=== PATIENT | female | born 1995 | race Caucasian/White ===

== ENCOUNTER 2019-10-11 13:03 | Emergency (ER) | payer OTHER ==
[~2019-10-11] VITALS: Ht 152.4 cm; Wt 54.4 kg
[~2019-10-11 13:03] MED LIST: CEPHALEXIN500 MG PO
== END 2019-10-11 14:50 | disposition home or self-care (01) ==
LOC: ED 13:03
DX: M54.5 Low back pain (principal); Z88.0 Allergy status to penicillin
CPT/HCPCS: 99283

== ENCOUNTER 2021-06-23 13:51 | Emergency (ER) | payer OTHER ==
[~2021-06-23] VITALS: Ht 152.4 cm; Wt 63.0 kg
--- OUTSIDE RECORDS SUMMARY | 2021-06-23 13:58 | XMS ---
PreManage Notification: PAT CONTRERAS Security Meter Changes Records Clerk Events No recent Security Events currently on file CRITERIA MET - [facility] - 2 Visits in 30 Days CARE PROVIDERS MATT HORNE Nurse Practitioner: Women's Health 11/03/2019-Current PHONE: [phone] MAYUR YATES Physician Transmission Worker Current PHONE: [phone] Neo has no Care Guidelines for this patient. Care History Medical/Surgical 11/02/2019 [facility] - PATIENT NO SHOWED TO APT TO ESTABLISH CARE WITH MATT HORNE ON 10/24/19. E.D. VISIT COUNT (12 MO.) [address] [facility] TOTAL 2 NOTE: Visits indicate total known visits. ED/UCC VISIT TRACKING (12 MO.) 06/23/2021 13:51 [facility] TYPE: Emergency COMPLAINT: - LIGHT HEADED,WEAKNESS 06/17/2021 20:54 [facility] TYPE: Emergency COMPLAINT: - POSSIBLE SEIZURE INPATIENT VISIT TRACKING (12 MO.) No inpatient visits to display in this time frame [email or web address]
[2021-06-23] MEDS ORDERED: PRENATA CHEWAB1 EACH PO (13:59)
[2021-06-23] MEDS ORDERED: LEVOTHYROXINE100 MCG PO (13:59)
== END 2021-06-23 16:48 | disposition home or self-care (01) ==
LOC: ED 13:51
DX: R55 Syncope and collapse (principal); F17.200 Nicotine dependence, unspecified, uncomplicated; Z88.0 Allergy status to penicillin; Z79.899 Other long term (current) drug therapy
CPT/HCPCS: 80053; 81001; 85025; 99284

== ENCOUNTER 2021-10-14 05:32 | Inpatient (IN) | payer OTHER ==
[~2021-10-14] VITALS: Ht 144.8 cm; Wt 72.6 kg
[~2021-10-14 05:32] MED LIST changes: +LEVOTHYROXINE100 MCG PO; +PRENATA CHEWAB1 EACH PO
--- NOTE | 2021-10-14 08:01 | PR ---
[facility] [address] [place], [place] [address] Signed PP Progress Notes Datetime Report Generated by CPN: 10/14/2021 08:01 SUBJECTIVE: [id number] Pain: Within Normal Limits Nausea/Vomiting: Denies Flatus: Yes Bowel Movement: No Vital Signs: [id number] Vital Signs: Reviewed; Within Normal Limits Cardiovascular: Normal Respiratory: Normal Abdomen/Uterus: Normal Lochia: Normal Vulva/Perineum: Not Done Breasts: Not Done CVA Tenderness: Normal Extremities: Normal Incision: Normal Progress: Normal Exam Comments: Fundus firm U-2 nontender. Incision healing well. IMPRESSION/PLAN/PROCEDURES: [id number] Impression: Normal Progression Plan: Remove Eryn; Discharge Progress Notes: Pt seen and examined. Doing well. Ambulating, voiding, and tolerating full diet. Pain and lochia minimal. . No fevers/chills or other concerns. Reviewed d/c instructions in details. D/C home today. Signing Physician: Sue Fuentes DO Copies: ~ *Electronically Signed* 10/14/21 0801 SUE FUENTES DO PATIENT NAME: PAT CONTRERAS RECORD #: [id number] PROGRESS NOTE DATE OF : [birth year] PHYSICIAN: SUE FUENTES DO RPT #: [id number] REPORT IS CONFIDENTIAL AND NOT TO BE RELEASED WITHOUT AUTHORIZATION
--- NOTE | 2021-10-14 13:16 | PR ---
[facility] [address] [place], [place] [address] Signed Progress Notes IP Datetime Report Generated by CPN: 10/14/2021 13:16 PROGRESS NOTES: [id number] Impression: Normal Progression of Labor Procedures: Intrauterine Pressure Catheter; Sterile Vag Exam Plan: Augmentation Informed Consent Obtain: Vaginal Delivery VITAL SIGNS: [id number] Vital Signs: Reviewed; Within Normal Limits EXAM: [id number] Dilatation: 5.0 Effacement: 75 Station: -2 Contractions: Irregular MEMBRANES: [id number] Comments: Pt seen and examined. Doing well. Reassuring tracing. Ctx rare and pitocin augmentation was started per low dose protocol. IUPC placed w/out difficulty. Anticipate FETUS A: [id number] FHR Baseline: 135 Variability: Moderate 6-25bpm Accelerations: 15X15 Decelerations: None FHR Category: Category I Presentation: Vertex Comments on Fetus A: No evidence of metabolic acidosis FETUS B: [id number] Signing Physician: Sue Fuentes DO Copies: ~ *Electronically Signed* 10/14/21 1316 SUE FUENTES DO PATIENT NAME: PAT CONTRERAS PROGRESS NOTE DATE OF : [birth year] PHYSICIAN: SUE FUENTES DO RPT #: [id number] REPORT IS CONFIDENTIAL AND NOT TO BE RELEASED WITHOUT AUTHORIZATION
--- NOTE | 2021-10-14 17:03 | PR ---
[facility] [address] [facility] [address] [place], [place] [address] Signed Progress Notes IP Datetime Report Generated by CPN: 10/14/2021 17:03 PROGRESS NOTES: [id number] Impression: Normal Progression of Labor; Reassuring Heart Rate Procedures: Sterile Vag Exam Plan: Continue Present Management; Anticipate Vaginal Delivery Informed Consent Obtain: Vaginal Delivery VITAL SIGNS: [id number] Vital Signs: Reviewed; Within Normal Limits EXAM: [id number] Dilatation: 7.0 Effacement: 80 Station: -2 Contractions: Irregular MEMBRANES: [id number] Comments: Pt seen and examined. Doing well. Comfortable w/ epidural but reports some increased pelvic pressure. CTXs adequate. Reviewed anticipated course of labor / delivery. All questions answered. FETUS A: [id number] FHR Baseline: 135 Variability: Moderate 6-25bpm Accelerations: 15X15 Decelerations: None FHR Category: Category I Presentation: Vertex Comments on Fetus A: No evidence of metabolic acidosis FETUS B: [id number] Signing Physician: Sue Fuentes DO Copies: ~ *Electronically Signed* 10/14/21 1280 SUE FUENTES DO PATIENT NAME: PAT CONTRERAS PROGRESS NOTE DATE OF : [birth year] PHYSICIAN: SUE FUENTES DO [facility] #: [id number] REPORT IS CONFIDENTIAL AND NOT TO BE RELEASED WITHOUT AUTHORIZATION
--- NOTE | 2021-10-14 20:51 | PR ---
[facility] [address] [facility] [address] [place], [place] [address] Signed Progress Notes IP Datetime Report Generated by CPN: 10/14/2021 20:51 PROGRESS NOTES: [id number] Impression: Normal Progression of Labor; Reassuring Heart Rate Procedures: Sterile Vag Exam Plan: Continue Present Management; Anticipate Vaginal Delivery Informed Consent Obtain: Vaginal Delivery VITAL SIGNS: [id number] Vital Signs: Reviewed; Within Normal Limits EXAM: [id number] Dilatation: 10.0 Effacement: 90 Station: -2 Contractions: Irregular MEMBRANES: [id number] Comments: Pt seen and examined. Doing well. Comfortable s/p rebolus of epidural. Complete on SVE. Discussed anticipated course of second stage of labor. Anticipate soon FETUS A: [id number] FHR Baseline: 135 Variability: Moderate 6-25bpm Accelerations: 15X15 Decelerations: None FHR Category: Category I Presentation: Vertex Comments on Fetus A: No evidence of metabolic acidosis FETUS B: [id number] Signing Physician: Sue Fuentes DO Copies: ~ *Electronically Signed* 10/14/212050 SUE FUENTES DO PATIENT NAME: PAT CONTRERAS PROGRESS NOTE DATE OF : 94 PHYSICIAN: SUE FUENTES DO RPT #: [id number] REPORT IS CONFIDENTIAL AND NOT TO BE RELEASED WITHOUT AUTHORIZATION
--- NOTE | 2021-10-15 12:21 | PR ---
[facility] [address] [facility] [place], [place] [address] Signed PP Progress Notes Datetime Report Generated by CPN: 10/15/2021 12:21 SUBJECTIVE: [id number] Pain: Within Normal Limits Nausea/Vomiting: Denies Flatus: Yes Bowel Movement: No Vital Signs: [id number] Vital Signs: Reviewed; Within Normal Limits Cardiovascular: Normal Respiratory: Normal Abdomen/Uterus: Normal Lochia: Normal Vulva/Perineum: Not Done Breasts: Not Done CVA Tenderness: Normal Extremities: Normal Incision: Normal Progress: Normal Exam Comments: Fundus firm U-2 nontender IMPRESSION/PLAN/PROCEDURES: [id number] Impression: Normal Progression Plan: Discharge Progress Notes: Pt seen and examined. Doing well. Ambulating, voiding, and tolerating full diet. Pain and lochia minimal. well. Desires d/c home today. Reviewed d/c instructions in detail. Hgb 10.4 Signing Physician: Sue Fuentes DO Copies: ~ *Electronically Signed* 10/15/21 1221 SUE FUENTES DO PATIENT NAME: OLESYA CONTRERASTOPHER BRODY PROGRESS NOTE DATE OF : [birth year] PHYSICIAN: SUE FUENTES DO RPT #: [id number] REPORT IS CONFIDENTIAL AND NOT TO BE RELEASED WITHOUT AUTHORIZATION
== END 2021-10-15 21:50 | disposition home or self-care (01) | DRG 807 ==
LOC: FBC 05:32
PROVIDERS: ADMIT Obstetrics & Gynecology; ATTEND Obstetrics & Gynecology
PROC: 10E0XZZ Delivery of Products of Conception, External Approach (ICD-10-PCS; principal; 2021-10-14)
PROC: 3E0R3BZ Introduction of Anesthetic Agent into Spinal Canal, Percutaneous Approach (ICD-10-PCS; 2021-10-14)
PROC: 00HU33Z Insertion of Infusion Device into Spinal Canal, Percutaneous Approach (ICD-10-PCS; 2021-10-14)
DX: O99.284 Endocrine, nutritional and metabolic diseases complicating childbirth (principal); Z37.0 Single live birth; Z3A.39 39 weeks gestation of pregnancy; O69.81X0 Labor and delivery complicated by cord around neck, without compression, not applicable or unspecified; E03.9 Hypothyroidism, unspecified; O99.334 Smoking (tobacco) complicating childbirth; F17.210 Nicotine dependence, cigarettes, uncomplicated; Z79.899 Other long term (current) drug therapy; Z98.890 Other specified postprocedural states; Z88.0 Allergy status to penicillin; Z88.7 Allergy status to serum and vaccine
CPT/HCPCS: 85027; A9270; J2590; J2795; J3010; U0003

== ENCOUNTER 2022-02-16 17:36 | Emergency (ER) | payer OTHER ==
[~2022-02-16] VITALS: Ht 152.4 cm; Wt 68.2 kg
--- OUTSIDE RECORDS SUMMARY | 2022-02-16 17:38 | XMS ---
PreManage Notification: PAT CONTRERAS Security Public Relations Account Supervisor Events 1 event(s) in the past 18 months Most recent security events: Elopement at [facility] 06/17/2021 20:54 - Other Details: PATIENT LWBS CRITERIA MET - [facility] CARE PROVIDERS DYLON CYR Emergency Medicine 06/24/2021-Current PHONE: [phone] MATT HORNE Nurse Practitioner: Women's Health 11/03/2019-Current PHONE: [phone] MAYUR YATES Physician Foundry Operator Current PHONE: [phone] Neo has no Care Guidelines for this patient. Care History Medical/Surgical 06/24/2021 [facility] - Patient is currently established with [facility]. If patient is seen in the ED during business hours. Please contact CHWs at [facility]. Care Recommendation: If this patient has had 5 or more Emergency Department visits in the last 12 months.\T\nbsp; Patient will require education on the scope and purpose of the ED as an acute care provider not a Primary Care Provider and should not be utilized for chronic conditions.\T\nbsp; These are guidelines and the provider should exercise clinical judgment when providing care. E.D. VISIT COUNT (12 MO.) 3 [facility]. TOTAL 3 NOTE: Visits indicate total known visits. ED/UCC VISIT TRACKING (12 MO.) 02/16/2022 17:36 [facility] TYPE: Emergency COMPLAINT: - POST OP PROBLEM 06/23/2021 13:51 [facility] TYPE: Emergency COMPLAINT: - WEAKNESS DIAGNOSES: - Syncope and collapse - Allergy status to penicillin - Nicotine dependence, unspecified, uncomplicated - Other penitentiary (current) drug therapy 06/17/2021 20:54 [facility] TYPE: Emergency COMPLAINT: - POSSIBLE SEIZURE INPATIENT VISIT TRACKING (12 MO.) 10/14/2021 05:32 [facility] TYPE: [facility] COMPLAINT: - INDUCTION DIAGNOSES: - 39 weeks gestation of - Hypothyroidism, unspecified - Other penitentiary (current) drug therapy - Labor and delivery complicated by cord around neck, without compression, not applicable or unspecified - Single live - Nicotine dependence, cigarettes, uncomplicated - Smoking (tobacco) complicating childbirth - Other termite control technician (current) drug therapy - Hypothyroidism, unspecified - Endocrine, nutritional and metabolic diseases complicating childbirth - Nicotine dependence, cigarettes, uncomplicated - Allergy status to penicillin - Other specified postprocedural states - Labor and delivery complicated by cord around neck, without compression, not applicable or unspecified - Single live - Endocrine, nutritional and metabolic diseases complicating , third trimester - Allergy status to penicillin - Allergy status to serum and vaccine - 39 weeks gestation of - Endocrine, nutritional and metabolic diseases complicating childbirth - Smoking (tobacco) complicating childbirth - Allergy status to serum and vaccine - Other specified postprocedural states [email or web address]
[2022-02-16] MEDS ORDERED: TRANEXAMIC ACI650 MG PO (21:11)
== END 2022-02-16 21:23 | disposition home or self-care (01) ==
LOC: ED 17:36
DX: N93.9 Abnormal uterine and vaginal bleeding, unspecified (principal); F17.200 Nicotine dependence, unspecified, uncomplicated; Z88.0 Allergy status to penicillin; Z88.7 Allergy status to serum and vaccine; Z79.899 Other long term (current) drug therapy
CPT/HCPCS: 36415; 76856; 80048; 81001; 85025; 86900; 96374; 99284-25